=== PATIENT | male | born 1990 | race Caucasian/White ===

== ENCOUNTER 2018-06-26 15:06 | Emergency (ER) | payer OTHER ==
[2018-06-26 15:27] VITALS: BP 119/73
--- NOTE | 2018-06-26 17:14 | UC ---
HPI Wound/Suture Re-check - HPI Summary HPI Summary: HAD A CYST REMOVED FROM LEFT CHEEK AT AN OUTSIDE FACILITY 8 DAYS AGO. IS HERE FOR REMOVAL OF 2 SUTURES. STATES HEALING WELL. NO FEVER, DRAINAGE OR TENDERNESS. ALSO REPORTS A H/O DANDRUFF AND FACIAL SKIN RASHES. HAD RX FOR KETOCONAZOLE SHAMPOO AND STEROID CREAM FROM DERM. IS REQUESTING A REFILL. - History Of Current Complaint Chief Complaint: UCSkin Stated Complaint: SUTURE REMOVAL Time Seen by Provider: 06/26/18 15:26 Hx Obtained From: Patient Severity: Mild Pain Intensity: 0 Pain Scale Used: 0-10 Numeric - Allergies/Home Medications Allergies/Adverse Reactions: Allergies Allergy/AdvReac Type Severity Reaction Status Date / Time No Known Allergies Allergy Verified 06/26/18 15:27 PMH/Surg Hx/FS Hx/Imm Hx Previously Healthy: Yes - Surgical History Surgical History: None - Family History Known Family History: Negative: Hypertension - Social History Alcohol Use: Occasionally Substance Use Type: None Smoking Status (MU): Never Smoked Tobacco Review of Systems Constitutional: Negative Skin: Rash, Other - SUTURES LEFT CHEEK Respiratory: Negative Cardiovascular: Negative Gastrointestinal: Negative All Other Systems Reviewed And Are Negative: Yes Physical Exam Triage Information Reviewed: Yes Appearance: Well-Appearing, No Pain Distress, Well-Nourished Vital Signs: Initial Vital Signs Temp 98.9 F 06/26/18 15:23 Pulse 60 06/26/18 15:23 Resp 18 06/26/18 15:23 BP 119/73 06/26/18 15:23 Pulse Ox 98 06/26/18 15:23 Vital Signs Reviewed: Yes Eyes: Positive: Conjunctiva Clear ENT: Positive: Hearing grossly normal Neck: Positive: Supple Respiratory: Positive: No respiratory distress, No accessory muscle use Cardiovascular: Positive: Pulses Normal Abdomen Description: Positive: Soft Musculoskeletal: Positive: No Edema Neurological: Positive: Alert Psychological: Positive: Age Appropriate Behavior Skin: Positive: Other - HEALING INCISION SITE LEFT CHEEK WITH [address] C/D/I. FLAKY SKIN AT HAIRLINE AND IN EYEBROWS AND UPPER LIP Course/Dx - Course Course Of Treatment: PT WITH PROBABLE SEBORRHEIC DERMATITIS. TOPICAL KETOCONAZOLE AND STEROID CREAM ERX PER REQUEST. ADVISED F/U WITH DERM. - Differential Dx - Laceration/Wound Provider Diagnoses: 1. SUTURE REMOVAL LEFT CHEEK. 2. DERMATITIS Discharge - Sign-Out/Discharge Documenting (check all that apply): Patient Departure All imaging exams completed and their final reports reviewed: No Studies - Discharge Plan Condition: Stable Disposition: HOME Prescriptions: Ketoconazole 5 ml TP WEEKLY #1 bottle Triamcinolone 0.1% CREAM(NF) [Kenalog Cream 0.1%(NF)] 1 applic TOPICAL TID PRN # 1 tube PRN Reason: Itching Patient Education Materials: Seborrheic Dermatitis (DC), Stitches Removal (ED) Referrals: Edy Ling MD [Primary Care Provider] - If Needed Additional Instructions: 2 SUTURES REMOVED FROM LEFT CHEEK WITHOUT DIFFICULTY. WILL SEND IN ERX FOR YOUR DERMATITIS PER REQUEST. RECOMMEND FOLLOW-UP WITH DERMATOLOGY. DERMATOLOGY IN [place] DR. MARIANNA ASHLEY [facility], [facility] [address]; [address] [place] [address] Dr. Margot Bhatia [place] Address: [address] [place] [address] [address] [place] [address] DR. CAYLA RENTERIA [facility] [address] [place] [address] [facility] Peri Navas DERMATOLOGY IN [place] DR. SUMAN POND [phone] - Billing Disposition and Condition Condition: STABLE Disposition: Home
== END 2018-06-26 16:29 | disposition home or self-care (01) ==
LOC: UCEAST 15:06
DX: L72.3 Sebaceous cyst (principal); L30.9 Dermatitis, unspecified
CPT/HCPCS: 99212; G0463

== ENCOUNTER 2018-07-01 18:35 | Emergency (ER) | payer OTHER ==
[2018-07-01 18:47] VITALS: BP 115/71
--- NOTE | 2018-07-01 19:20 | UC ---
Upper Extremity HPI - HPI Summary HPI Summary: paronychia developed over last 2 days. , to left index finger, denies manicure , trauma. He had augmentin for another procedure and took a dose today. pain is throbbing - History of Current Complaint Chief Complaint: NATALIEkin Stated Complaint: FINGER COMPLAINT,PAIN,SWELLING Time Seen by Provider: 07/01/18 19:07 Hx Obtained From: Patient Onset/Duration: Sudden Onset, Lasting Days Severity Initially: Mild Severity Currently: Severe Pain Intensity: 6 - Allergies/Home Medications Allergies/Adverse Reactions: Allergies Allergy/AdvReac Type Severity Reaction Status Date / Time No Known Allergies Allergy Verified 07/01/18 18:48 Home Medications: Home Medications Amoxicillin/Clavulanate TAB* [Augmentin TAB 500 mg*] 1 tab PO BID 07/01/18 [ History Confirmed 07/01/18] PMH/Surg Hx/FS Hx/Imm Hx Previously Healthy: Yes - Surgical History Surgical History: Yes Surgery Procedure, Year, and Place: cyst excised to left cheek 06/18/18 - Family History Known Family History: Positive: None Negative: Hypertension - Social History Alcohol Use: Occasionally Substance Use Type: None Smoking Status (MU): Never Smoked Tobacco Review of Systems Constitutional: Negative Skin: Other - finger swelling All Other Systems Reviewed And Are Negative: Yes Physical Exam Triage Information Reviewed: Yes Appearance: Well-Appearing, No Pain Distress, Well-Nourished Vital Signs: Initial Vital Signs Temp 98.7 F 07/01/18 18:42 Pulse 80 07/01/18 18:42 Resp 15 07/01/18 18:42 BP 115/71 07/01/18 18:42 Pulse Ox 98 07/01/18 18:42 Vital Signs Reviewed: Yes Eyes: Positive: Conjunctiva Clear ENT: Positive: Hearing grossly normal Neck: Positive: Supple, Nontender Respiratory: Positive: Chest non-tender, Lungs clear, Normal breath sounds, No respiratory distress Cardiovascular: Positive: RRR, No Murmur, Pulses Normal, Brisk Capillary Refill Abdomen Description: Positive: Nontender Musculoskeletal: Positive: Strength Intact, ROM Intact, Other: - soft tissue swelling on left index finger adjacent to nailbed with fluctuation. Pulses are present Neurological: Positive: Alert, Muscle Tone Normal Upper Extremity Course/Dx - Course Course Of Treatment: 27yo patient with presence of paronychia in left index. Incision and drainage of the left finger performed with an 11 blade scalpel, draining sanguinopurulent material, patient tolerated procedure well. Finger dressed and prescription of keflex given first dose at , to continue course until completion. f/u with PCP in a week - Differential Dx/Diagnosis Provider Diagnoses: paronychia Discharge - Sign-Out/Discharge Documenting (check all that apply): Patient Departure All imaging exams completed and their final reports reviewed: No Studies - Discharge Plan Condition: Stable Disposition: HOME Patient Education Materials: Paronychia (ED), Cephalexin (By mouth) Referrals: Edy Ling MD [Primary Care Provider] - Additional Instructions: please follow up with your primary care in one week keep finger dry for 36 hrs and change dressing daily complete the course of antibiotics and take probiotics - Billing Disposition and Condition Condition: STABLE Disposition: Home
[2018-07-01] MEDS ORDERED: Cephalexin CAP* 500 MG PO ONE (19:22)
== END 2018-07-01 19:51 | disposition home or self-care (01) ==
LOC: UCEAST 18:35
DX: L03.012 Cellulitis of left finger (principal)
CPT/HCPCS: 10060; 99212; A9270-GY; G0463

== ENCOUNTER 2018-07-02 19:49 | Emergency (ER) | payer OTHER ==
[2018-07-02] MEDS ORDERED: Lidocaine 1%* 5 ML VIAL INJ ONE (21:08)
[2018-07-02 21:11] VITALS: BP 140/78
[2018-07-02] MEDS ORDERED: HYDROcodone/ACETAMIN 5-325 MG* 1 TAB PO ONE ×2 (22:29→22:30)
[2018-07-02] MEDS ORDERED: Sulfamethox/Trimethoprim DS 800/160* TAB PO ONE ×2 (22:31→22:32)
--- NOTE | 2018-07-02 22:38 | UC ---
Hand/Wrist HPI - HPI Summary HPI Summary: 27-year-old male comes in with pain in the left index finger. Pain started several days ago. Was seen here and started on Keflex for a paronychia. We attempted drainage at that time and he got some blood out but no pus. He has gotten worse since then. No fevers. The tip of the finger is gotten more swollen since then. - History Of Current Complaint Chief Complaint: UCUpperExtremity Stated Complaint: HAND PAIN Time Seen by Provider: 07/02/18 21:03 Pain Intensity: 10 - Allergies/Home Medications Allergies/Adverse Reactions: Allergies Allergy/AdvReac Type Severity Reaction Status Date / Time No Known Allergies Allergy Verified 07/02/18 21:11 PMH/Surg Hx/FS Hx/Imm Hx - Additional Past Medical History Additional PMH: LEFT INDEX FINGER INFECTION - Surgical History Surgical History: Yes Surgery Procedure, Year, and Place: cyst excised to left cheek 06/18/18 - Family History Known Family History: Positive: None Negative: Hypertension - Social History Alcohol Use: Occasionally Substance Use Type: None Smoking Status (MU): Never Smoked Tobacco Review of Systems Constitutional: Negative Skin: Other - Swelling of distal left index finger Eyes: Negative ENT: Negative Respiratory: Negative Cardiovascular: Negative Motor: Negative Neurovascular: Negative Musculoskeletal: Other: - Pain and swelling of distal left index finger Neurological: Negative Is Patient Immunocompromised?: No All Other Systems Reviewed And Are Negative: Yes Physical Exam Triage Information Reviewed: Yes Appearance: Pain Distress - MODERATE, Other: - INITIALLY HYPERVENTILATING Vital Signs: Initial Vital Signs Temp 99.1 F 07/02/18 20:24 Pulse 109 07/02/18 20:24 Resp 22 07/02/18 20:24 BP 140/78 07/02/18 20:24 Pulse Ox 100 07/02/18 20:24 Vital Signs Reviewed: Yes Eye Exam: Normal Neck exam: Normal Neck: Positive: Supple Respiratory Exam: Normal Respiratory: Positive: Lungs clear, Normal breath sounds, No respiratory distress Cardiovascular: Positive: Tachycardia Musculoskeletal: Positive: Other: - The tip of the left index finger swollen and tender to palpation Neurological Exam: Normal Neurological: Positive: Alert Psychological Exam: Normal Psychological: Positive: Normal Response To Family Skin: Positive: Other - The tip of the left index finger is swollen and tender to palpation Procedures - Incision and Drainage Finger Site: LEFT INDEX FINGER Anesthesia: Digital, Lidocaine Instrument(s): Scalpel - #11 Hand/Wrist Course/Dx - Course Course Of Treatment: I incised and drained the left index fingertip. I made a lateral incision and a dorsal incision. The dorsal incision did express some pus in the wound culture was taken. Plan is to and Bactrim to the Keflex and also a prescription for [place] and have the patient follow up with orthopedic hands tomorrow. He's to go to the emergency department for worse. On the x- ray I did not see evidence of a foreign body and no fracture radiologist reading is pending. - Differential Dx/Diagnosis Provider Diagnoses: LEFT INDEX FINGER INFECTION Discharge - Sign-Out/Discharge Documenting (check all that apply): Patient Departure All imaging exams completed and their final reports reviewed: No - Discharge Plan Condition: Stable Disposition: HOME Patient Education Materials: Paronmchia (ED) Referrals: Edy Ling MD [Primary Care Provider] - Geovanna Hardy MD [Medical Doctor] - Additional Instructions: FOLLOW UP WITH ORTHOPEDICS. CALL DR HARDY'S OFFICE TOMORROW TO ARRANGE FOR FOLLOW UP. GO TO THE EMERGENCY DEPARTMENT FOR ANY WORSENING OF YOUR CONDITION OR QUESTIONS OR CONCERNS. - Billing Disposition and Condition Condition: STABLE Disposition: Home
--- NOTE | 2018-07-03 07:48 | RAD ---
Indication: Bacterial infection palmar aspect distal phalanx LEFT second finger. Comparison: No relevant prior exams available on the [facility] for comparison. Technique: 3 views LEFT second finger. Report: Soft tissue swelling greatest distally at the volar aspect. No subcutaneous emphysema or conspicuous foreign body. Negative for fracture, periosteal reaction, Osteolysis, or articular malalignment. IMPRESSION: #. Soft tissue swelling without additional finding. No radiographic stigmata of osteomyelitis. R0
--- NOTE | 2018-07-03 08:08 | ED ---
Progress - Progress Note Progress Note: 07/02/18 LT INDEX FINGER X-RAY NAD, NO CHANGE IN CARE Course/Dx - Course Course Of Treatment: I incised and drained the left index fingertip. I made a lateral incision and a dorsal incision. The dorsal incision did express some pus in the wound culture was taken. Plan is to and Bactrim to the Keflex and also a prescription for [place] and have the patient follow up with orthopedic hands tomorrow. He's to go to the emergency department for worse. On the x- ray I did not see evidence of a foreign body and no fracture radiologist reading is pending. Discharge - Sign-Out/Discharge Documenting (check all that apply): Patient Departure All imaging exams completed and their final reports reviewed: Yes - Discharge Plan Condition: Stable Disposition: HOME Prescriptions: HYDROcodone/ACETAMIN 5-325 MG* [[place] 5-325 TAB*] 1 tab PO Q4H PRN #20 tab MDD 6 PRN Reason: Pain Sulfamethox/Trimethoprim DS* [Bactrim DS 800/160 TAB*] 1 tab PO BID #18 tab Patient Education Materials: Paronychia (ED) Referrals: Edy Ling MD [Primary Care Provider] - Geovanna Hardy MD [Medical Doctor] - Additional Instructions: FOLLOW UP WITH ORTHOPEDICS. CALL DR HARDY'S OFFICE TOMORROW TO ARRANGE FOR FOLLOW UP. GO TO THE EMERGENCY DEPARTMENT FOR ANY WORSENING OF YOUR CONDITION OR QUESTIONS OR CONCERNS. - Billing Disposition and Condition Condition: STABLE Disposition: Home
== END 2018-07-02 23:00 | disposition home or self-care (01) ==
LOC: UCEAST 19:49
DX: L03.012 Cellulitis of left finger (principal)
CPT/HCPCS: 10060; 73140; 87070; 87205; 99213; A9270-GY; G0463